=== PATIENT | male | born 1970 | race Two or more races ===

== ENCOUNTER 2018-10-05 15:36 | Emergency (ER) | payer SELFPAY ==
--- NOTE | 2018-10-05 15:42 | ED Physician Documentation ---
General Adult - HISTORIAN Historian: patient - HPI Stated Complaint: throat and left ear pain x 3 days Chief Complaint: Sore Throat Onset: days ago (3) Timing: still present Severity: moderate Further Comments: yes (He does not speak Macedonian and the person with him speaks very broken Macedonian so the translation is difficlut - he states his left ear and throat have been hurting x 3 days he has tried OTC meds (no one can report what those are) but feels the throat pain is worse. He does not feel he can swallow. He is not sure about a fever. No rash) - ROS CONST: no problems - PAST HX Past History: none Immunizations: other (unknown ) Allergies/Adverse Reactions: Allergies Allergy/AdvReac Type Severity Reaction Status Date / Time No Known Allergies Allergy Unverified 10/05/18 16:15 Home Medications: Ambulatory Orders Medication Instructions Recorded NK 10/05/18 - SOCIAL HX Smoking History: non-smoker Alcohol Use: none Drug Use: none - FAMILY HX Family History: No - REVIEWED ASSESSMENTS Nursing Assessment Reviewed: Yes Vitals Reviewed: Yes Progress - Progress Progress: 1632: during CT he started to vomit - DG 1646: Discussed case with Brionna she will page ENT and return call DG 1705: Discussed case with ENT Dr Munoz and she will accept through ER DG 1720: states pain is "bad" DG ED Results Lab/Radiology - Radiology Radiology Impressions: Exam: Chest two views. History: Fever. No previous studies are available for comparison. Lung nugent are well aerated without brooke consolidation or effusion. Heart and mediastinal contour are normal. Impression: No brooke consolidation or effusion. Electronically signed on Oct 05, 2018 4:33:51 PM CDT by: Maciej Camacho Exam: CT of the soft tissue the neck after IV infusion of contrast material. History: Vomiting. Axial images through the soft tissue the neck after IV infusion of 93 cc Omnipaque 350 is submitted along with sagittal and coronal reformatted images. In the left tonsillar region there is a mixed attenuating and enhancing mass measuring 3.2 x 2.5 by 3.5 cm which may represent a peritoneal or abscess. Some deviation of the uvula to the right is noted. The epiglottis is of normal co nfiguration. Soft tissue swelling the left side of the vallecular is noted. The parotid and submandibular glands are normal attenuation and enhancement. Shotty lymph nodes in the Ursula carotid spaces are noted. The opacified vasculature is of normal caliber. The thyroid gland appears normal in attenuation and enhancement. Impression: A left-sided peritonsillar abscess is suspected. Soft tissue swelling fills the left side of the vallecula. The epiglottis is of normal configuration. Shotty lymph nodes in the Ursula carotid spaces are noted. Direct visualization may be beneficial to further evaluate. Electronically signed on Oct 05, 2018 4:41:39 PM CDT by: Maciej Camacho General Adult Physical Exam - PHYSICAL EXAM GENERAL APPEARANCE: no distress EENT: eye inspection normal, TM's nml, other (he is unable to open mouth fully - mild swelling on left side of neck - no pain with palpation ) NECK: normal inspection RESPIRATORY: no resp distress, chest non-tender, breath sounds normal CVS: reg rate & rhythm, heart sounds normal ABDOMEN: soft, no distension BACK: normal inspection SKIN: warm/dry, normal color EXTREMITIES: non-tender, normal range of motion, no evidence of injury, no edema NEURO: oriented X3 Discharge Clincal Impression: Peritonsillar abscess Referrals: Primary Doctor,No [Primary Care Provider] - 2 Days Comments: Transfer to [facility] - Dr Munoz DG Disposition: 02 XFER SHT-TRM HOSP Decision to Admit: NO Date of Decison to Admit: 10/05/18 Decision Time: 17:11
[2018-10-05] MEDS ORDERED: 0.9 % SODIUM CHLORIDE 1,000 ML IV ONE ×2 (15:48→17:23)
[2018-10-05 16:12] LABS: BASOPHILS % 0.5 % (0.0-1.5); NEUTROPHILS # 14.9 # k/uL (1.4-7.7)
[2018-10-05 16:16] LABS: eGFR (Non-African) > 60
[2018-10-05] MEDS ORDERED: ONDANSETRON HCL/PF 4 MG/ 2ML VIAL IVP ONE (16:29)
--- NOTE | 2018-10-05 16:36 | Diagnostic Imaging Report ---
EDWAR MAYFIELD [facility] [address] [facility] [address] [place], [place]. [address] Report Submission Date: Oct 05, 2018 4:33:51 PM CDT Patient Study Name: PARESH WASHINGTON Date: Oct 05, 2018 3:58:50 PM CDT Modality Type: DX Gender: M Description: CHEST 2VIEW : 70 Institution: [facility] Physician: EDWAR MAYFIELD Exam: Chest two views. History: Fever. No previous studies are available for comparison. Lung nugent are well aerated without brokoe consolidation or effusion. Heart and mediastinal contour are normal. Impression: No brooke consolidation or effusion. Electronically signed on Oct 05, 2018 4:33:51 PM CDT by: Maciej NOVOA
--- NOTE | 2018-10-05 16:52 | Diagnostic Imaging Report ---
EDWAR MAYFIELD [facility] [address] [facility] [address] [place], [place]. [address] Report Submission Date: Oct 05, 2018 4:41:39 PM CDT Patient Study Name: PARESH WASHINGTON Date: Oct 05, 2018 4:17:57 PM CDT Modality Type: CT\SR Gender: M Description: CT NECK SOFT TISSUE W/ : 70 Institution: [facility] Physician: EDWAR MAYFIELD Exam: CT of the soft tissue the neck after IV infusion of contrast material. History: Vomiting. Axial images through the soft tissue the neck after IV infusion of 93 cc Omnipaque 350 is submitted along with sagittal and coronal reformatted images. In the left tonsillar region there is a mixed attenuating and enhancing mass measuring 3.2 x 2.5 by 3.5 cm which may represent a peritoneal or abscess. Some deviation of the uvula to the right is noted. The epiglottis is of normal configuration. Soft tissue swelling the left side of the vallecular is noted. The parotid and submandibular glands are normal attenuation and enhancement. Shotty lymph nodes in the Ursula carotid spaces are noted. The opacified vasculature is of normal caliber. The thyroid gland appears normal in attenuation and enhancement. Impression: A left-sided peritonsillar abscess is suspected. Soft tissue swelling fills the left side of the vallecula. The epiglottis is of normal configuration. Shotty lymph nodes in the Ursula carotid spaces are noted. Direct visualization may be beneficial to further evaluate. Electronically signed on Oct 05, 2018 4:41:39 PM CDT by: Maciej NOVOA
[2018-10-05] MEDS ORDERED: fentaNYL CITRATE/PF 100 MCG/2 ML INJ. IVP ONE (17:23)
[2018-10-05 17:35] VITALS: BP 122/76
== END 2018-10-05 17:36 | disposition short-term general hospital (02) ==
LOC: ED 15:36
DX: J36 Peritonsillar abscess (principal)
CPT/HCPCS: 70491; 71046; 80053; 85025; 87040; 87400; 96361; 96374; 99282; 99283; J2405; J3010; J7030; Q9967; S1016